=== PATIENT | female | born 1975 | race Caucasian/White ===

== ENCOUNTER 2018-09-16 02:57 | Emergency (ER) | payer BC ==
[2018-09-16] MEDS ORDERED: predniSONE 20 MG Tab PO ONE (03:34)
[2018-09-16] MEDS: Albuterol 0.083% 2.5 MG/3 ML Neb Soln NEB PRN ×3 (03:36→04:16)
[2018-09-16] MEDS ORDERED: Albuterol 0.083% 2.5 MG/3 ML Neb Soln ONE ×3 (03:40→04:20)
[2018-09-16] MEDS ORDERED: predniSONE 20 MG Tab ONE (03:40)
--- NOTE | 2018-09-16 04:39 | EDM.PDOC ---
ED HPI GENERAL MEDICAL PROBLEM - General Chief Complaint: Asthma Stated Complaint: ASTHMA ATTACK Time Seen by Provider: 09/16/18 04:15 Source of Information: Reports: Patient History Limitations: Reports: No Limitations - History of Present Illness INITIAL COMMENTS - FREE TEXT/NARRATIVE: This patient presents to the ED for evaluation of difficulty breathing. She states she noticed a sore throat earlier on Saturday and felt some chest tightness. She needed to use her inhaler once during the day. She continued to feel worse through the evening and used her inhaler as well as her nebulizer a couple of more times. She woke at 0200 and used her inhaler and her nebulizer a couple of more times before coming in. She states she did not feel as though her nebulizer was working as well as it normally did with this illness. She is coughing, denies fever. Her appetite was decreased this evening. No vomiting or diarrhea. She denies other concerns or complaints. 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 (see below) Other Treatments FIRE ENGINE OPERATOR: Neb and Albuterol Inhalers - Related Data Allergies Allergy/AdvReac Type Severity Reaction Status Date / Time No Known Allergies Allergy Verified 09/16/18 03:02 Home Meds: Home Meds Albuterol Sulfate [Albuterol Sulfate HFA] 2 puff IH ASDIRECTED PRN 02/27/14 [ History] Beclomethasone Dipropionate [Qvar 80 Mcg] 1 puff IH BID 02/27/14 [History] Albuterol Sulfate 2.5 mg IH Q4HR PRN 09/16/18 [History] Benzoyl Peroxide [Acne Medication] 1 applic TOP DAILY 09/16/18 [History] Past Medical History HEENT History: Reports: Impaired Vision Respiratory History: Reports: Asthma - Past Surgical History HEENT Surgical History: Reports: None ED ROS GENERAL - Review of Systems Review Of Systems: See Below Constitutional: Denies: Fever HEENT: Reports: Throat Pain. Denies: Ear Pain Respiratory: Reports: Shortness of Breath, Wheezing, Cough Cardiovascular: Denies: Chest Pain Endocrine: Reports: No Symptoms GI/Abdominal: Denies: Abdominal Pain, Difficulty Swallowing, Nausea, Vomiting Musculoskeletal: Reports: No Symptoms Skin: Reports: No Symptoms Neurological: Reports: No Symptoms ED EXAM, GENERAL - Physical Exam Exam: See Below Exam Limited By: No Limitations General Appearance: Alert, WD/WN, Moderate Distress Eye Exam: Bilateral Eye: PERRL Ears: Normal External Exam, Normal Canal, Normal TMs Nose: Normal Inspection, Normal Mucosa, Nasal Drainage Throat/Mouth: Normal Inspection, Other (throat erythematous) Head: Atraumatic, Normocephalic Neck: Normal Inspection, Supple, Non-Tender, Full Range of Motion Respiratory/Chest: Other (Chest symmetric, intercostal retractions bilaterally with tachypnea. Significantly decreased air exchange.) Back Exam: Full Range of Motion Extremities: Normal Range of Motion Neurological: Alert, Oriented Course - Vital Signs Last Recorded V/S: Last Vital Signs Temp 37.2 C 09/16/18 03:04 Pulse 136 H 09/16/18 04:30 Resp 18 09/16/18 04:35 BP 137/96 H 09/16/18 03:04 Pulse Ox 97 09/16/18 04:30 - Orders/Labs/Meds Orders: Active Orders 24 hr Category Date Time Status RT Aerosol Therapy [RC] ASDIRECTED Care 09/16/18 03:47 Active Albuterol [Proventil Neb Soln] Med 09/16/18 03:36 Active 2.5 mg NEB ASDIRECTED PRN Medication Orders Albuterol (Proventil Neb Soln) 2.5 mg NEB ASDIRECTED PRN PRN Reason: Shortness of Breath Last Admin: 09/16/18 04:16 Dose: 2.5 mg Admin: 09/16/18 03:56 Dose: 2.5 mg Admin: 09/16/18 03:36 Dose: 2.5 mg Meds: Medications Generic Name Dose Route Start Last Admin Trade Name Freq PRN Reason Stop Dose Admin Albuterol 2.5 mg 09/16/18 03:36 09/16/18 04:16 Proventil Neb Soln NEB 2.5 mg ASDIRECTED PRN Administration Shortness of Breath Discontinued Medications Generic Name Dose Route Start Last Admin Trade Name Freq PRN Reason Stop Dose Admin Albuterol Confirm 09/16/18 03:40 09/16/18 03:50 Proventil Neb Soln Administered 09/16/18 03:41 Not Given Dose 2.5 mg .ROUTE .STK-MED ONE Albuterol Confirm 09/16/18 04:02 09/16/18 04:05 Proventil Neb Soln Administered 09/16/18 04:03 Not Given Dose 2.5 mg .ROUTE .STK-MED ONE Albuterol Confirm 09/16/18 04:20 09/16/18 04:20 Proventil Neb Soln Administered 09/16/18 04:21 Not Given Dose 2.5 mg .ROUTE .STK-MED ONE Ondansetron HCl Confirm 09/16/18 04:55 Zofran Odt Administered 09/16/18 04:56 Dose 4 mg .ROUTE .STK-MED ONE Prednisone Confirm 09/16/18 03:40 09/16/18 03:49 Prednisone Administered 09/16/18 03:41 Not Given Dose 60 mg .ROUTE .STK-MED ONE Prednisone 60 mg 09/16/18 03:34 09/16/18 03:34 Prednisone PO 09/16/18 03:35 60 mg ONETIME ONE Administration - Re-Assessments/Exams Free Text/Narrative Re-Assessment/Exam: 09/16/18 05:49 This patient presents for evaluation of shortness of breath and wheezing as detailed above. Signs and symptoms are consistent with an asthma exacerbation. A broad differential was considered including foreign body, asthma, pneumonia, bronchitis, reactive airway disease, pneumothorax, cardiac equivalent, viral induced wheezing, allergic phenomena, etc. Patient feels improved after the above interventions here in the ED. There are no signs at this point of any serious etiologies including those mentioned above. She did improve some with each respiratory treatment and was markedly improved at discharge. She was given prednisone in the ED and is likely to continue to improve through the morning. She will continue prednisone for the next 5 days and use her rescue and preventer medications at home as previously prescribed. We did discuss hospitalization for continued treatments and monitoring; however, the patient expressed a desire to go home. She will return to the ED immediately as needed. She did not have any hypoxia or marked increase in respiratory rate, and retractions had resolved prior to discharge. Supportive outpatient management is indicated, medications for discharge noted below. Close followup with primary care physician. Return for increased wheezing, progressive shortness of breath, develops fever greater than 102. Departure - Departure Time of Disposition: 06:00 Disposition: Home, Self-Care 01 Preliminary Cause of *Q: Sepsis & Multi System Organ Failure Condition: Fair Clinical Impression: Asthma exacerbation - Discharge Information *PRESCRIPTION DRUG MONITORING PROGRAM REVIEWED*: Not Applicable *COPY OF PRESCRIPTION DRUG MONITORING REPORT IN PATIENT NORMA: Not Applicable Instructions: Asthma, Adult, [id number] Referrals: PCP,None [Primary Care Provider] - Forms: ED Department Discharge
[2018-09-16] MEDS ORDERED: Ondansetron 4 MG Tab.DIS ONE (04:55)
== END 2018-09-16 05:55 | disposition home or self-care (01) ==
LOC: LB.ED 02:57
DX: J45.901 Unspecified asthma with (acute) exacerbation (principal); Z79.899 Other long term (current) drug therapy
CPT/HCPCS: 99284; A9270